=== PATIENT | female | born 1990 | race Caucasian/White ===

== ENCOUNTER 2016-12-02 16:15 | Emergency (ER) | payer SELFPAY ==
[2016-12-02 16:19] LABS: BASOPHILS 0.4 %; BASOPHILS ABSOLUTE 0.01 10/3/uL (0.0-0.16); EOSINOPHILS 0.7 %; EOSINOPHILS ABSOLUTE 0.02 10/3/uL (0.0-0.53); ER CBC TAT 0 Hrs 11 Mins; HEMATOCRIT 38.5 % (36.0-48.0); HEMOGLOBIN 13.6 g/dL (12.0-16.0); LYMPHOCYTES 31.9 %; LYMPHOCYTES ABSOLUTE 0.91 10/3/uL (0.67-4.30); MANUAL DIFF NO %; MEAN CORPUS HGB CONC 35.3 g/dL (32.0-36.0); MEAN CORPUSCULAR HEMOGLOB 30.8 pg (26.0-34.0); MEAN CORPUSCULAR VOLUME 87.3 fL (80-100); MEAN PLATELET VOLUME 9.7 fL (9.2-13.0); MONOCYTES 10.9 %; MONOCYTES ABSOLUTE 0.31 10/3/uL (0.21-1.20); NEUTROPHILS 56.1 %; PLATELET COUNT 175 10/3/uL (150-400); RBC DISTRIBUTION WIDTH 12.1 % (12.0-16.0); RED CELL COUNT 4.41 10/6/uL (4.0-5.6); WHITE BLOOD CELLS 2.9 10/3/uL (4.5-10.5)
[2016-12-02 16:21] LABS: ASCORBIC ACID (UR NOT ORDER) NEG (NEG); BILIRUBIN, URINE NEGATIVE (NEG); ER URINALYSIS TAT 0 Hrs 10 Mins; KETONE, URINE TRACE MG/DL (NEG); LEUKOCYTE ESTERASE(NOT OR NEG (NEG); NITRITE (URINE) NEG (NEG); WBC (NOT ORDERED) (RFLEX) 1 (0-5)
[2016-12-02 16:30] LABS: A/G RATIO 1.1 (0.7-1.9); ALBUMIN 3.7 G/DL (3.5-5.0); ALKALINE PHOSPHATASE 57 U/L (45-117); BUN (BLOOD UREA NITROGEN) 12 MG/DL (6-23); CALCIUM, SERUM 8.5 MG/DL (8.5-10.4); CHLORIDE, SERUM 103 MMOL/L (96-112); CO2 (CARBON DIOXIDE) 26 MMOL/L (24-34); CREATININE 0.71 MG/DL (0.55-1.02); GFR AFRICAN AMERICAN 136 ML/MIN (>=60); GFR NON AFRICAN AMERICAN 118 ML/MIN (>=60); GLOBULIN 3.5 G/DL (2.5-4.1); GLUCOSE, SERUM 78 MG/DL (60-99); POTASSIUM, SERUM 3.5 MMOL/L (3.5-5.3); SGOT(AST) 34 U/L (5-40); SGPT(ALT) 33 U/L (5-65); SODIUM, SERUM 139 MMOL/L (135-148); TOTAL BILIRUBIN 0.3 MG/DL (0-1.2); TOTAL PROTEIN 7.2 G/DL (6.0-8.5)
== END 2016-12-02 19:15 | disposition home or self-care (01) ==
LOC: ER 16:15
PROVIDERS: Physician Assistant
DX: R10.13 Epigastric pain (principal); R11.2 Nausea with vomiting, unspecified; K92.1 Melena; R74.8 Abnormal levels of other serum enzymes; F17.200 Nicotine dependence, unspecified, uncomplicated
CPT/HCPCS: 74177; 80053; 81001; 83690; 84703; 85025; 93005; 96374; 99285; A9270-GY; J2405

== ENCOUNTER 2016-12-05 19:46 | Inpatient (IN) | payer SELFPAY ==
--- NOTE | ~2016-12-05 | DS ---
Discharge Summary [facility] [address] [place]. [address] NAME: KM JEAN : 89 STATUS : DIS IN PAT#: [id number] AGE: 26 ADM/REG DATE : 12/05/16 MR#: [id number] REPORT SERV DATE: 12/10/16 DICTATED BY: JOSIANE PITTMAN DATE: 12/09/16 REPORT STATUS : Draft TRANSCRIBED BY: MODL DATE: 12/09/16 ADMISSION DATE: 12/05/2016 DISCHARGE DATE: 12/09/2016 This is a 26-year-old female who is going to be discharged with final diagnoses of: 1. Acute pancreatitis likely secondary to alcohol. 2. Hypotension, improved. 3. Alcohol abuse. 4. Tobacco abuse. DIAGNOSTIC IMAGING: Pelvic ultrasound showing trace amount of pelvic free fluid, likely physiologic. Several small ovarian follicles are present. Abdominal ultrasound showing normal findings. HOSPITAL COURSE: Please refer to the H and P done by Dr. Rodriguez dated on 12/05/2016. Briefly this is a 26-year-old female who comes in with abdominal pain. The patient admits to having large alcohol intake secondary to stress and came to the hospital for abdominal pain. She was diagnosed with pancreatitis but opted to leave the hospital and see if she can handle it at home. She was given some Phenergan. The patient continued having this abdominal pain, nausea and vomiting, came back to the emergency room and was admitted by Dr. Rodriguez. The patient was counseled against smoking and taking alcohol. She did not have any withdrawals. She was hydrated and slowly given some food. On the day of discharge, she said that she was able to take a turkey sandwich without any nausea and vomiting. Abdominal pain is better but she is having this back pain. There is no tenderness in her spine and she is able to walk around without any problems, so we believe that this might still be the lingering pancreatitis that she has. I offered her to stay in the hospital and see if that pain would go away; however, she would rather go home and take care of her child who is also sick right now. So as the patient is able to eat with stable vital signs, we will be discharging her with the above diagnosis. She will follow up with our [facility] as she does not have a PCP. I also told her that she can go to the [facility] as well as she lives in the [facility]. She will be continuing her home medications of multivitamin, Phenergan 25 mg every six hours p.r.n. nausea and vomiting, Prilosec 20 mg at bedtime. I will give her a prescription for [place] 10/325, 28 tablets one tab p.o. q.6 p.r.n. pain. Nicotine patch 21 mg a day which is over the counter unless she prefers smoking. If she has increasing pain, nausea and vomiting, weakness, fever not to hesitate to come back to the emergency room. This has been explained to her and she agreed and understood the plan. TIME SPENT: 35 minutes. JUSTIN/MARIELY Josiane Pittman M.D. Discharge Summary [address] [address] NAME: KM JEAN : 90 STATUS : DIS IN PAT#: [id number] AGE: 26 ADM/REG DATE : 12/05/16 MR#: [id number] REPORT SERV DATE: 12/10/16 DICTATED BY: JOSIANE PITTMAN DATE: 12/09/16 REPORT STATUS : Draft TRANSCRIBED BY: MARIELY DATE: 12/09/16 / [id number] CC: Josiane Pittman M.D. none [facility]
--- NOTE | ~2016-12-05 | HP ---
History And Physical [place] [id number] [facility] [place]. [address] NAME: KM JEAN : 89 STATUS : ADM Jacquelyn PAT#: [id number] AGE: 26 ADM/REG DATE : 12/05/16 MR#: [id number] REPORT SERV DATE: 12/05/16 DICTATED BY: BASHIR RODRIGUEZ DATE: 12/05/16 REPORT STATUS : Draft TRANSCRIBED BY: MODL DATE: 12/05/16 DATE OF ADMISSION: 12/05/2016 CHIEF COMPLAINT: Abdominal pain. HISTORY OF PRESENT ILLNESS: This is a 26-year-old lady who was recently diagnosed with pancreatitis, presenting with persistent abdominal pain. The patient at baseline drinks three to four wine coolers on daily basis, but lately the patient has been under stress with her daughter and thus she has been drinking considerably more. The patient developed abdominal pain a few days ago, and the patient was actually seen here in the ER on 12/02/2016. At that time, the patient was diagnosed with acute pancreatitis, but rest of the evaluations were benign. The patient opted to leave the hospital to try to rest off at home. Unfortunately, the patient's abdominal pain never really went away and the patient was suffering from persistent nausea. The patient decided to come back to the ER for further evaluation and care. In the ER, the patient was found to be afebrile and hemodynamically stable. Initial lab evaluation was all very benign except for a lipase that is now worse at 1088 whereas it was 807 just a few days ago. Internal Medicine consultation was requested for admission of the patient for further evaluation and care. REVIEW OF SYSTEMS: The patient denies any fevers or chills. Also, 14-point review of systems is reviewed and negative other than mentioned above. MEDICATIONS: 1. Multivitamins 1 tablet p.o. daily. 2. Prilosec 20 mg p.o. q.h.s. 3. Phenergan 25 mg p.o. q.6 hours p.r.n. ALLERGIES: NKDA. PAST MEDICAL HISTORY: 1. Smoking. 2. Alcohol abuse, although the patient has not had any alcohol withdrawals in the past. PAST SURGICAL HISTORY: Negative. FAMILY HISTORY: Diabetes. SOCIAL HISTORY: The patient smokes about half a pack on daily basis. The patient also consumes alcohol on daily basis, especially in the last year or so. The patient on average drinks three to four wine coolers nightly, but she has drank considerably more past week due to increasing stress. The patient, otherwise, does not use any illicit drugs. 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 History And Physical [address] [address] NAME: KM JEAN : 89 STATUS : ADM Jacquelyn PAT#: [id number] AGE: 26 ADM/REG DATE : 12/05/16 MR#: [id number] REPORT SERV DATE: 12/05/16 DICTATED BY: BASHIR RODRIGUEZ DATE: 12/05/16 REPORT STATUS : Draft TRANSCRIBED BY: MARIELY DATE: 12/05/16 PHYSICAL EXAMINATION: VITAL SIGNS: Temperature 98.2, blood pressure 125/68, pulse 68, respiratory rate is 16, and saturating 100% on room air. NEUROLOGIC: The patient is alert and oriented x3 with no focal neurologic deficits. GENERAL: The patient is awake, does not appear to be in acute distress, and she is cooperative. NECK: No JVD. No lymphadenopathy. Normal thyroid. CHEST: No midline sternotomy scar and no tenderness to palpation. LUNGS: Clear to auscultation bilaterally with normal respiratory effort on room air. CARDIOVASCULAR: Regular rate and rhythm with no murmurs, rubs, or gallops, and PMI is nondisplaced. ABDOMEN: Soft, but tender to palpation especially in the epigastric area. Otherwise, active bowel sounds and no organomegaly. EXTREMITIES: No edema. Normal distal pulses. No calf tenderness. SKIN: Clean, dry, warm, and intact. LABORATORY DATA: Sodium is 144, potassium 4.1, chloride 106, BUN 5, creatinine 0.79, glucose 111, calcium 8.8. LFTs are within normal limits. Lipase was 1088. Urine drug screen was negative. Serum toxicology screen was negative. Urinalysis was negative. The patient also had a negative mono screen. CT was not performed today, but it was performed just a few days ago, on 12/02/2016, and that was actually benign with normal appearing pancreas. ASSESSMENT AND PLAN: This is a 26-year-old lady with a history of smoking and alcohol abuse, presenting with acute pancreatitis. 1. Acute pancreatitis. 2. Smoking. 3. Alcohol abuse. PLAN: My plan is to admit the patient for observation overnight. The patient will be given mainly supportive care with IV fluid resuscitation as well as antiemetics and pain control. The patient will be made n.p.o. and will be slowly advanced in her diet in the morning. For alcohol abuse, the patient will be given daily vitamins, and she will be monitored under [facility] protocol. For smoking cessation, counseling was provided. Standard DVT prophylaxis. The patient is full code at this time. John/MARIELY aBshir Rodriguez MD / [id number] History And Physical [address] [address] NAME: KM JEAN : 89 STATUS : ADM Jacquelyn PAT#: [id number] AGE: 26 ADM/REG DATE : 12/05/16 MR#: [id number] REPORT SERV DATE: 12/05/16 DICTATED BY: BASHIR RODRIGUEZ DATE: 12/05/16 REPORT STATUS : Draft TRANSCRIBED BY: MARIELY DATE: 12/05/16 CC: Arden Navarrete M.D. NO PCP
[2016-12-05 16:29] LABS: ASCORBIC ACID (UR NOT ORDER) NEG (NEG); BASOPHILS 1.3 %; BASOPHILS ABSOLUTE 0.04 10/3/uL (0.0-0.16); BILIRUBIN, URINE NEGATIVE (NEG); EOSINOPHILS 0.6 %; EOSINOPHILS ABSOLUTE 0.02 10/3/uL (0.0-0.53); ER URINALYSIS TAT 0 Hrs 07 Mins; HEMATOCRIT 39.8 % (36.0-48.0); HEMOGLOBIN 13.3 g/dL (12.0-16.0); KETONE, URINE NEGATIVE (NEG); LEUKOCYTE ESTERASE(NOT OR NEG (NEG); LYMPHOCYTES 52.6 %; LYMPHOCYTES ABSOLUTE 1.64 10/3/uL (0.67-4.30); MEAN CORPUS HGB CONC 33.4 g/dL (32.0-36.0); MEAN CORPUSCULAR HEMOGLOB 29.7 pg (26.0-34.0); MEAN CORPUSCULAR VOLUME 88.8 fL (80-100); MEAN PLATELET VOLUME 10.3 fL (9.2-13.0); MONOCYTES 5.4 %; MONOCYTES ABSOLUTE 0.17 10/3/uL (0.21-1.20); NEUTROPHILS 40.1 %; NEUTROPHILS ABSOLUTE 1.25 10/3/uL (2.02-8.40); NITRITE (URINE) NEG (NEG); PLATELET COUNT 179 10/3/uL (150-400); RBC DISTRIBUTION WIDTH 12.2 % (12.0-16.0); RED CELL COUNT 4.48 10/6/uL (4.0-5.6); WBC (NOT ORDERED) (RFLEX) < 1 (0-5); WHITE BLOOD CELLS 3.1 10/3/uL (4.5-10.5)
[2016-12-05 16:30] LABS: MANUAL DIFF NO %
[2016-12-05 16:42] LABS: A/G RATIO 1.1 (0.7-1.9); ALBUMIN 3.7 G/DL (3.5-5.0); ALKALINE PHOSPHATASE 60 U/L (45-117); CALCIUM, SERUM 8.8 MG/DL (8.5-10.4); CHLORIDE, SERUM 106 MMOL/L (96-112); CREATININE 0.79 MG/DL (0.55-1.02); GFR AFRICAN AMERICAN 120 ML/MIN (>=60); GFR NON AFRICAN AMERICAN 103 ML/MIN (>=60); GLOBULIN 3.4 G/DL (2.5-4.1); POTASSIUM, SERUM 4.1 MMOL/L (3.5-5.3); SGOT(AST) 20 U/L (5-40); SGPT(ALT) 30 U/L (5-65); SODIUM, SERUM 144 MMOL/L (135-148); TOTAL BILIRUBIN 0.2 MG/DL (0-1.2); TOTAL PROTEIN 7.1 G/DL (6.0-8.5)
[2016-12-05 16:43] LABS: BUN (BLOOD UREA NITROGEN) 5 MG/DL (6-23); CO2 (CARBON DIOXIDE) 31 MMOL/L (24-34); GLUCOSE, SERUM 111 MG/DL (60-99)
[2016-12-05 20:11] LABS: ACETAMINOPHEN LEVEL (TYLENOL) < 2.0 MCG/ML (10.0-20.0); ALCOHOL < 10 MG/DL (0); DIRECT BILIRUBIN < 0.1 MG/DL (0.0-0.4); INDIRECT BILIRUBIN(NOT ORDER) 0.1 MG/DL (0.1-0.9); SALICYLATE < 1.7 MG/DL (-)
[2016-12-05] MEDS ORDERED: CENTRUM PO (20:11)
[2016-12-05] MEDS ORDERED: PRILO PO (20:12)
[2016-12-05] MEDS ORDERED: PR25 PO (20:12)
[2016-12-05 20:22] LABS: AMPHETAMINES (NOT ORD) NEG (NEG); BARBITURATES (NOT ORDERED NEG (NEG); BENZODIAZEPINES (NOT ORD) NEG (NEG); CANNABINOIDS (THC) NEG (NEG); COCAINE (NOT ORDERED) NEG (NEG); OPIATES NEG (NEG); PHENCYCLIDINE(PCP) NEG (NEG); TRICYCLICS NEG (NEG)
[2016-12-06 06:33] LABS: HEMATOCRIT 36.6 % (36.0-48.0); HEMOGLOBIN 12.3 g/dL (12.0-16.0); MANUAL DIFF YES %; MEAN CORPUS HGB CONC 33.6 g/dL (32.0-36.0); MEAN CORPUSCULAR HEMOGLOB 30.3 pg (26.0-34.0); MEAN CORPUSCULAR VOLUME 90.1 fL (80-100); PLATELET COUNT 155 10/3/uL (150-400); RED CELL COUNT 4.06 10/6/uL (4.0-5.6); WHITE BLOOD CELLS 3.7 10/3/uL (4.5-10.5)
[2016-12-06 06:46] LABS: BUN (BLOOD UREA NITROGEN) 5 MG/DL (6-23); CALCIUM, SERUM 7.8 MG/DL (8.5-10.4); CHLORIDE, SERUM 114 MMOL/L (96-112); CO2 (CARBON DIOXIDE) 27 MMOL/L (24-34); CREATININE 0.83 MG/DL (0.55-1.02); GFR AFRICAN AMERICAN 113 ML/MIN (>=60); GFR NON AFRICAN AMERICAN 97 ML/MIN (>=60); GLUCOSE, SERUM 80 MG/DL (60-99); POTASSIUM, SERUM 3.8 MMOL/L (3.5-5.3); SODIUM, SERUM 148 MMOL/L (135-148)
[2016-12-06 07:33] LABS: BAND NEUTROPHILS 1 %; EOSINOPHILS 1 %; EOSINOPHILS ABSOLUTE (CALC) 0.04 10/3/uL (0.0-0.53); LYMPHOCYTES 68 %; LYMPHOCYTES ABSOLUTE (CALC) 2.52 10/3/uL (0.67-4.30); MONOCYTES 10 %; MONOCYTES ABSOLUTE (CALC) 0.37 10/3/uL (0.21-1.20); NEUTROPHILS ABSOLUTE (CALC) 0.78 10/3/uL (2.02-8.40); SEGMENTED NEUTROPHIL (0) 20 %; TOTAL NUCLEATED CELLS 100
[2016-12-06 07:34] LABS: PLATELET ESTIMATE ADQ (ADEQUATE); RBC MORPHOLOGY NORM (NORMAL)
[2016-12-07 07:20] LABS: BASOPHILS 0.3 %; BASOPHILS ABSOLUTE 0.01 10/3/uL (0.0-0.16); EOSINOPHILS 1.7 %; EOSINOPHILS ABSOLUTE 0.06 10/3/uL (0.0-0.53); HEMATOCRIT 34.6 % (36.0-48.0); HEMOGLOBIN 11.5 g/dL (12.0-16.0); LYMPHOCYTES 59.4 %; LYMPHOCYTES ABSOLUTE 2.09 10/3/uL (0.67-4.30); MEAN CORPUS HGB CONC 33.2 g/dL (32.0-36.0); MEAN CORPUSCULAR HEMOGLOB 30.2 pg (26.0-34.0); MEAN CORPUSCULAR VOLUME 90.8 fL (80-100); MEAN PLATELET VOLUME 10.1 fL (9.2-13.0); MONOCYTES 6.5 %; MONOCYTES ABSOLUTE 0.23 10/3/uL (0.21-1.20); NEUTROPHILS 32.1 %; NEUTROPHILS ABSOLUTE 1.13 10/3/uL (2.02-8.40); PLATELET COUNT 158 10/3/uL (150-400); RBC DISTRIBUTION WIDTH 12.1 % (12.0-16.0); RED CELL COUNT 3.81 10/6/uL (4.0-5.6); WHITE BLOOD CELLS 3.5 10/3/uL (4.5-10.5)
[2016-12-07 07:22] LABS: MANUAL DIFF NO %
[2016-12-07 07:29] LABS: BUN (BLOOD UREA NITROGEN) 3 MG/DL (6-23); CALCIUM, SERUM 7.6 MG/DL (8.5-10.4); CHLORIDE, SERUM 115 MMOL/L (96-112); CO2 (CARBON DIOXIDE) 28 MMOL/L (24-34); GFR AFRICAN AMERICAN 118 ML/MIN (>=60); GFR NON AFRICAN AMERICAN 102 ML/MIN (>=60); GLUCOSE, SERUM 84 MG/DL (60-99); POTASSIUM, SERUM 4.2 MMOL/L (3.5-5.3); SODIUM, SERUM 147 MMOL/L (135-148)
[2016-12-09] MEDS ORDERED: HABIT21 TOP (10:06)
[2016-12-09] MEDS ORDERED: NORCO1 TAB PO (10:06)
== END 2016-12-09 12:00 | disposition home or self-care (01) | DRG 440 ==
LOC: ER 19:46 → 5SO 21:49
PROVIDERS: Emergency Medicine; Internal Medicine; Nurse Practitioner
DX: K85.20 Alcohol induced acute pancreatitis without necrosis or infection (principal); I95.9 Hypotension, unspecified; F10.10 Alcohol abuse, uncomplicated; F17.210 Nicotine dependence, cigarettes, uncomplicated
CPT/HCPCS: 76700; 76830; 76856; 80048; 80053; 80305; 80307; 81001; 82248; 83690; 84703; 85025; 86308; 96374; 96375; 99285; A9270-GY; C9113; J2405; J2550